=== PATIENT | male | born 1995 | race African-American/Black ===

== ENCOUNTER 2018-08-19 00:16 | Emergency (ER) | payer SELFPAY ==
[2018-08-19] MEDS ORDERED: Acetaminophen 500 MG TAB ONE (01:21)
--- NOTE | 2018-08-19 08:34 | RAD ---
RIGHT FOOT 3 VIEWS: Date: 08/19/18 INDICATION: Tenderness of the navicular region. FINDINGS: The os naviculare is intact without fracture seen. Lisfranc joint is maintained. No acute fracture. There is enthesophyte formation of the dorsal calcan eus. IMPRESSION: No acute fracture of right foot. POS: [facility]
== END 2018-08-19 01:52 | disposition home or self-care (01) ==
LOC: SCSER 00:16
DX: M79.671 Pain in right foot (principal)